=== PATIENT | male | born 1960 | race African-American/Black ===

== ENCOUNTER → 2019-08-10 | Outpatient (CLI) | payer OTHER ==
[2016-06-16 08:37] VITALS: BP 143/89
[~2019-08-10] MED LIST: LISI-338 PO; LISI10TA2 PO; METF500T16 PO; REGADENOSON 0.4 MG/5 ML DISP.SYRIN. IV ONE; TAMS0.4C2 PO
--- NOTE | 2019-08-13 11:58 | RAD ---
MR#: [id number] Date of Study: 08/10/2019 Ordering Physician: CASSY JORGENSEN, Referring Physician: MICHI THOMPSON Tech: PONCE Jay ARRT (Kenzie) (N) APPROVED REPORT Test Type: Pharmacological Stress Nurse/Tech: Veronica Cantu RN Test Indications: HTN Cardiac History: HTN, DM Medications: See Electronic Medical Record Medical History: See Electronic Medical Record Resting ECG: SR Resting Heart Rate: 80 bpm Resting Blood Pressure: 163/85mmHg Pretest Chest Pain: None Nurse/Tech Notes Lungs CTA, S1S2 Consent: The procedure was explained to the patient in lay terms. Informed consent was witnessed. Chris eout was entered into [employer]. History and Stress Test performed by JOEL Gama Pharm. Details Pharmacologic stress testing was performed using 0.4mg per 5ml of regadenoson given intravenously ove r 7-10 seconds. Stress Symptoms No chest pain or symptoms. POST EXERCISE Reason for Termination: Infusion complete Max HR: 102 bpm Max Blood Pressure: 164/82mmHg Blood Pressure response to exercise: Normal blood pressure response during stress. Heart Rate response to exercise: normal response Chest Pain: No. Arrhythmia: No. ST Change: No. INTERPRETATION Stress EKG Conclusion: No evidence of stress induced EKG changes. Imaging Protocol IMAGE PROTOCOL: Rest Tc-99m/stress Tc-99m 1 day Rest: Stress: Viability: Radiopharm.Tc99m KjhghpbxhOk60z Sestamibi Njow26kCh 33mCi Img Date 08/10/2019 08/10/2019 Inj-Img Fnjd50oys. 60min. Rest Admin Site:IV - Right AntecubitalAdministrator:PONCE Jay ARRT (R)(N) Stress Admin Site: IV - Right AntecubitalAdministrator: JOEL Gama STRESS DATA End Diast. Vol.119.0mlAv. Heart Rate86.0bpm End Syst. Vol.57.0mlCO Index BSA0.0L/min Myocardial Laas840.0gEject. Pkdaldgt36.0% Stress Rates Pk. Fill Rate2.42EDV/secLVtime Pk. Fill 203.04msec Pk. Empty Rate2.68ESV/secLVtime Pk. Eject90.72msec 1/3 Pk. Fill1.28EDV/sec Stress Scores Regional WT0.00Summed WT6.00 Regional WM2.00Summed WM21.00 LV Perfusion There is a small to moderate sized FIXED septal defect suggestive of prior infarct w/o active ischemi a. There is also a a small to moderate sized basal to mid inferior wall defect suggestive of prior infar ct w/o ischemia Wall Motion Mild global hypokinesis, EF 50%. LV Perf. Quant 17 Seg. SSS5.00 17 Seg. SRS12.00 17 Seg. SDS0.00 Stress Defect Extent (% LAD)20.00Rest Defect Extent (% LAD)33.80Rev. Defect Extent (% LAD)0.00 Stress Defect Extent (% LCX) 0.00Rest Defect Extent (% LCX)15.00Rev. Defect Extent (% LCX)0.00 Stress Defect Extent (% RCA)0.00Rest Defect Extent (% RCA)6.70Rev. Defect Extent (% RCA)0.00 Stress Defect Extent (% LILLY)7.60Rest Defect Extent (% LILLY)18.00Rev. Defect Extent (% LILLY)0.00 Other Information Quality:Fair Risk Assessment: Moderate Risk Conclusion 1. No evidence of stress induced EKG changes. 2. Fixed defects as noted above w/o active ischemia. 3. Mild LV dysfunction. EF 50% 4. Moderate risk study. Signed by : Dwight Thakkar, Electronically Approved : 08/10/2019 12:54:40
== END | disposition home or self-care (01) ==
LOC: NM 07:57
PROVIDERS: ATTEND Family Medicine
DX: R14.2 Eructation (principal); I10 Essential (primary) hypertension; E11.9 Type 2 diabetes mellitus without complications
CPT/HCPCS: 78452; 93017; A9500; J2785

== ENCOUNTER → 2020-02-27 | Outpatient (CLI) | payer OTHER ==
[2016-06-16 08:37] VITALS: BP 143/89
[~2020-02-27] MED LIST changes: -REGADENOSON 0.4 MG/5 ML DISP.SYRIN. IV ONE
--- NOTE | 2020-02-27 15:58 | CARD ---
MR#: [id number] Date of Study: 02/27/2020 Ordering Physician: MIL ESTRADA, Referring Physician: MIL ESTRADA, Tech: Liudmila Oakley APPROVED REPORT EXAM: Two-dimensional and M-mode echocardiogram with Doppler and color Doppler. Other Information Quality : AverageHR: 84bpm INDICATION Cardiac Disease: CAD RISK FACTORS Hypertension Hyperlipidemia 2D DIMENSIONS Left Atrium(2D)2.4 (1.6-4.0cm)IVSd1.0 (0.7-1.1cm) Aortic Root(2D)3.2 (2.0-3.7cm)LVDd4.4 (3.9-5.9cm) LVOT Diameter2.0 (1.8-2.4cm)PWd1.0 (0.7-1.1cm) LVDs3.5 (2.5-4.0cm)FS (%) 22.1 % SV40.0 ml Aortic Valve AoV Peak Alexander.112.8cm/sAoV VTI16.5cm AO Peak GR.5.1mmHgLVOT Peak Alexander.93.6cm/s LVOT VTI 13.90cmAO Mean GR.3mmHg MARLEY (VMAX)1.51pu2HYK (VTI)2.54cm2 Mitral Valve MV E Savljdmd94.9cm/sMV DECEL XCNV388ra MV A Wnwazfab91.3cm/sMV E Mean Gr.1mmHg MV DIV44npR/A Ratio0.7 MVA (PHT)2.50cm2 TDI E/Lateral E'3.6E/Medial E'8.3 Pulmonary Valve PV Peak Kflpuuhx74.1cm/sPV Peak Grad.4mmHg Tricuspid Valve TR P. Mykzmsqe616wi/sRAP IRHJGKIY6vnYq TR Peak Gr.41kuSvPXSC38zsNf Pulmonary Vein S1 Xsxsbdbz98.1cm/sD2 Jkzpvrec50.6cm/s PVa sczskyci172xuom LEFT VENTRICLE The left ventricle is normal size. There is normal left ventricular wall thickness. The left ventricu lar systolic function is mildly decreased. The Ejection Fraction is estimated at 45%. There is mild hypokinesis in the mid septal wall. Transmitral Doppler flow pattern is Grade I-abnormal relaxation p attern. RIGHT VENTRICLE The right ventricle is normal size. There is normal right ventricular wall thickness. The right ventr icular systolic function is normal. ATRIA The left atrium size is normal. The right atrium size is normal. The interatrial septum is intact wit h no evidence for an atrial septal defect or patent foramen ovale as noted on 2-D or Doppler imaging. AORTIC VALVE The aortic valve is normal in structure and function. Doppler and Color Flow revealed no significant aortic regurgitation. There is no significant aortic valvular stenosis. Calculated aortic valve area is 2.51 cm2 with maximum pressure gradient of 6 mmHg and mean pressure gradient of 3 mmHg. MITRAL VALVE The mitral valve is normal in structure and function. There is no evidence of mitral valve prolapse. There is no mitral valve stenosis. Doppler and Color-flow revealed trace mitral regurgitation. TRICUSPID VALVE The tricuspid valve is normal in structure and function. Doppler and Color Flow revealed trace tricus pid regurgitation with an estimated PAP of 23 mmHg. There is no tricuspid valve stenosis. PULMONIC VALVE The pulmonic valve is not well visualized. Doppler and Color Flow revealed no pulmonic valvular regur gitation. GREAT VESSELS The aortic root is normal in size. The IVC is normal in size and collapses >50% with inspiration. PERICARDIAL EFFUSION There is no evidence of significant pericardial effusion. Critical Notification Critical Value: No <Conclusion> The left ventricle is normal size. The left ventricular systolic function is mildly decreased. The Ejection Fraction is estimated at 45%. There is mild hypokinesis in the mid septal wall. Doppler and Color Flow revealed no significant aortic regurgitation. There is no significant aortic valvular stenosis. Doppler and Color-flow revealed trace mitral regurgitation. Doppler and Color Flow revealed trace tricuspid regurgitation with an estimated PAP of 23 mmHg. Signed by : Geovany Austin MD Electronically Approved : 02/27/2020 15:57:51
== END | disposition home or self-care (01) ==
LOC: ECHO 10:19
PROVIDERS: ATTEND Internal Medicine Cardiovascular Disease
DX: I25.10 Atherosclerotic heart disease of native coronary artery without angina pectoris (principal)
CPT/HCPCS: 93306

== ENCOUNTER 2021-09-28 08:17 | Inpatient (IN) | payer OTHER ==
[2021-09-28] VITALS (15 sets, daily range): BP systolic 100–173; BP diastolic 60–93
[~2021-09-28] VITALS: Ht 167.6 cm; Wt 82.1 kg
[~2021-09-28 08:17] MED LIST changes: -LISI-338 PO; +LISI10TA16 PO; -LISI10TA2 PO; +LISI5TAB15 PO
[2021-09-28] MEDS ORDERED: AMLO-186 PO (08:49)
[2021-09-28] MEDS ORDERED: ASPI-630 PO (08:49)
[2021-09-28] MEDS ORDERED: ATOR40TA59 PO (08:49)
[2021-09-28] MEDS ORDERED: CARV3.1210 PO (08:49)
[2021-09-28] MEDS ORDERED: IBUP-1027 PO (08:49)
[2021-09-28] MEDS ORDERED: GLUC-11 PO (08:49)
[2021-09-28] MEDS ORDERED: HYDR50TA9 PO (08:49)
[2021-09-28 09:09] LABS: CALCIUM 8.6 mg/dL (8.5-10.1); CREATININE 1.3 mg/dL (0.7-1.3); GFR 67.9; HEMATOCRIT 38.7 % (39.0-53.0); HEMOGLOBIN 13.2 g/dL (13.0-17.5); POTASSIUM 4.5 mmol/L (3.5-5.1); RED BLOOD COUNT 4.25 x10^6/uL (4.30-5.70); RED CELL DISTRIBUTION WIDTH 13.4 % (11.5-14.5); WHITE BLOOD COUNT 3.7 x10^3/uL (4.0-11.0)
[2021-09-28 09:28] LABS: PROTHROMBIN TIME PATIENT 14.4 SEC (11.7-14.0)
[2021-09-28] MEDS ORDERED: VERAPAMIL 5 MG/2 ML VIAL. ONE (10:10)
[2021-09-28] MEDS ORDERED: fentaNYL PF VIAL 100 MCG/2 ML VIAL ONE (10:10)
[2021-09-28] MEDS ORDERED: MIDAZOLAM HCL/PF 2 MG/2 ML VIAL. ONE (10:10)
[2021-09-28] MEDS ORDERED: HEPARIN for IV BOLUS 10,000 UNIT/10 ML VIAL. ONE (10:10)
[2021-09-28] MEDS ORDERED: NITROGLYCERIN 200 MCG/2 ML SYRINGE FOR CATH/VASC LAB. ONE (10:11)
[2021-09-28] MEDS ORDERED: fentaNYL PF VIAL 100 MCG/2 ML VIAL IV ONE (10:45)
[2021-09-28] MEDS ORDERED: VERAPAMIL 5 MG/2 ML VIAL. IART ONE (10:45)
[2021-09-28] MEDS ORDERED: CONTRAST GIVEN. MC PRN (10:45)
[2021-09-28] MEDS ORDERED: LIDOCAINE 1% PF 2 ML VIAL. INJ ONE (10:45)
[2021-09-28] MEDS ORDERED: NITROGLYCERIN 200 MCG/2 ML SYRINGE FOR CATH/VASC LAB. IART ONE (10:45)
[2021-09-28] MEDS ORDERED: IODIXANOL 320 MG/ML 100 ML VIAL. IART ONE (10:45)
[2021-09-28] MEDS ORDERED: HEPARIN for IV BOLUS 10,000 UNIT/10 ML VIAL. IART ONE (10:45)
[2021-09-28] MEDS ORDERED: MIDAZOLAM HCL/PF 2 MG/2 ML VIAL. IV ONE (10:45)
[2021-09-28] MEDS ORDERED: HEPARIN for IV BOLUS 10,000 UNIT/10 ML VIAL. IV ONE (10:45)
[2021-09-28] MEDS ORDERED: CLOPIDOGREL BISULFATE 75 MG TABLET ONE (11:12)
[2021-09-28] MEDS ORDERED: CLOPIDOGREL BISULFATE 75 MG TABLET PO ONE (11:30)
[2021-09-28] MEDS ORDERED: IV NORMAL SALINE 1000ML BAG 1,000 ML IV ONE (11:30)
--- NOTE | 2021-09-28 12:50 | HP ---
DATE OF SERVICE: 09/28/2021 ADMIT DATE: 09/28/2021 REASON FOR ADMISSION TO THE HOSPITAL: History of PCI and failed angioplasty and nonsustained VT. HISTORY OF PRESENT ILLNESS: The patient is a pleasant 61-year-old man who presented to the hospital in the setting of significant exertional dyspnea and nonsustained VT and due to his symptoms, he was brought straight to the catheterization laboratory on elective basis for further evaluation of ischemic pathology. He was found to have a critical 95% bifurcation stenosis involving his RCA and attempts to cross the lesion were unsuccessful and therefore, he has been admitted to initiate antiplatelet therapy and antiarrhythmic drug therapy prior to discharge for consideration of referral to a tertiary medical center for complex PCI. PAST MEDICAL HISTORY: 1. Coronary artery disease. 2. Hypertension. 3. Dyslipidemia. 4. Diastolic heart failure. 5. Obesity. ALLERGIES: No known drug allergies. CURRENT CARDIOVASCULAR MEDICATIONS: 1. Lisinopril 20 mg daily. 2. Carvedilol 3.125 mg p.o. b.i.d. 3. Hydrochlorothiazide 50 mg daily. 4. Atorvastatin 40 mg daily. REVIEW OF SYSTEMS: Negative for 10 out of 14 systems reviewed, unless otherwise mentioned above in HPI. PHYSICAL EXAMINATION: VITAL SIGNS: Afebrile. HEAD AND NECK: Unremarkable. CARDIAC: Regular rate and rhythm without any murmurs, rubs or gallops. LUNGS: Clear to auscultation bilaterally. ABDOMEN: Soft, nontender, nondistended. EXTREMITIES: No clubbing, cyanosis or edema. NEUROLOGIC: No focal deficits. MUSCULOSKELETAL: No trauma. DIAGNOSTIC STUDIES: Hemoglobin, creatinine and platelets are within normal limits. IMPRESSION: 1. Nonsustained ventricular tachycardia. 2. Ischemic cardiomyopathy. 3. Three-vessel coronary artery disease with critical lesion involving the RCA bifurcation. RECOMMENDATIONS: 1. Initiate Plavix and continue aspirin therapy as well as statin. 2. We will initiate metoprolol therapy and amiodarone therapy for monitoring of his nonsustained VT. 3. Plan for referral to a tertiary medical center in the near future for complex PCI. DONNA SARGENT: Fallon TID: [id number] OFELIA
--- NOTE | 2021-09-28 16:44 | CARD ---
MR#: [id number] Date of Study: 09/28/2021 Ordering Physician: MIL ESTRADA, Referring Physician: MIL ESTRADA, Tech: Ashley Tapia [facility] APPROVED REPORT EXAM: Two-dimensional and M-mode echocardiogram with Doppler and color Doppler. Other Information Quality : GoodHR: 65bpm Rhythm : NSR INDICATION Cardiac Disease: CAD RISK FACTORS Hypertension Hyperlipidemia Diabetes 2D DIMENSIONS RVDd3.0 (2.9-3.5cm)Left Atrium(2D)3.2 (1.6-4.0cm) IVSd1.4 (0.7-1.1cm)Aortic Root(2D)3.1 (2.0-3.7cm) LVDd4.2 (3.9-5.9cm)LVOT Diameter2.2 (1.8-2.4cm) PWd1.4 (0.7-1.1cm)LVDs3.3 (2.5-4.0cm) FS (%) 20.7 %SV33.2 ml Aortic Valve AoV Peak Alexander.103.9cm/sAoV VTI20.4cm AO Peak GR.4.3mmHgLVOT Peak Alexander.87.6cm/s AO Mean GR.2mmHgAVA (VMAX)3.31cm2 Mitral Valve MV E Eerzaqlw03.2cm/sMV DECEL SIUY014na MV A Sfuwjfgz43.9cm/sE/A Ratio0.7 Pulmonary Valve PV Peak Kqbloclg48.2cm/s Tricuspid Valve TR P. Topnpabj177ib/sTR Peak Gr.27mmHg LEFT VENTRICLE The left ventricle is normal size. There is mild concentric left ventricular hypertrophy. The ejectio n fraction is mildly impaired. LV ejection fraction is estimated at 45%. There is mild septal hypokin esis. Transmitral Doppler flow pattern is Grade I-abnormal relaxation pattern. RIGHT VENTRICLE The right ventricle is normal size. There is normal right ventricular wall thickness. The right ventr icular systolic function is normal. ATRIA The left atrium size is normal. The right atrium size is normal. The interatrial septum is intact wit h no evidence for an atrial septal defect or patent foramen ovale as noted on 2-D or Doppler imaging. AORTIC VALVE The aortic valve is normal in structure and function. Doppler and Color Flow revealed trace aortic re gurgitation. There is no significant aortic valvular stenosis. MITRAL VALVE The mitral valve is normal in structure and function. There is no evidence of mitral valve prolapse. There is no mitral valve stenosis. Doppler and Color-flow revealed trace mitral regurgitation. TRICUSPID VALVE The tricuspid valve is normal in structure and function. Doppler and Color Flow revealed trace tricus pid regurgitation. Estimated PAP 30 mmHg. There is no tricuspid valve stenosis. PULMONIC VALVE The pulmonary valve is normal in structure and function. Doppler and Color Flow revealed no pulmonic valvular regurgitation. GREAT VESSELS The aortic root is normal in size. The ascending aorta is normal in size. The IVC is normal in size a nd collapses >50% with inspiration. PERICARDIAL EFFUSION There is no evidence of significant pericardial effusion. Critical Notification Critical Value: No <Conclusion> The left ventricle is normal size. The ejection fraction is mildly impaired. LV ejection fraction is estimated at 45%. There is mild septal hypokinesis. There is mild concentric left ventricular hypertrophy. Doppler and Color Flow revealed trace aortic regurgitation. There is no significant aortic valvular stenosis. Doppler and Color-flow revealed trace mitral regurgitation. Doppler and Color Flow revealed trace tricuspid regurgitation. Estimated PAP 30 mmHg. Signed by : Geovany Austin MD Electronically Approved : 09/28/2021 16:43:43
--- NOTE | 2021-09-28 18:04 | CARD ---
MR#: [id number] Date of Study: 09/28/2021 Ordering Physician: MIL THAKKAR, Referring Physician: MIL THAKKAR, Tech: NATALIYA SUAREZ APPROVED REPORT Technologist: NATALIYA SUAREZ Nurse: Roslyn Campos RN Procedure(s) performed: FL TIME: 21.4 MIN DOSE: 102 GYCM2 CONTRAST: 85 ML SEDATION TIME: 80 MIN Left heart catheterization, coronary angiography Failed PCI of the right coronary artery INDICATION The indication(s) include : palpitations, arrhythmia, dyspnea, Nonsustained VT. [facility] Clinical Frailty Scale [facility] Clinical Frailty Scale: Mildly Frail Heart Failure Heart Failure: Yes If Yes, Newly Diagnosed: Yes If Yes, HF Type: Diastolic If Yes, NYHA Class: Class II CASE TECHNIQUE IV conscious sedation was used throughout procedure with appropriate monitoring and was performed in the presence of a registered nurse who was an independent trained observer other than the physician p erforming the procedure. During this case, Fluoroscopy and low osmolar contrast were used for imaging . Specimen(s) Removed: N/A Estimated Blood loss: 15 cc's. PROCEDURE NARRATIVE Clinical information: 61-year-old male with past medical history of hypertension and dyslipidemia presented to the office i n the setting of exertional dyspnea and palpitations. A event monitor revealed nonsustained ventricu lar tachycardia and therefore his stress test was canceled and he was taken directly to the catheteri zation laboratory for further evaluation and treatment Procedure details: Under 1% lidocaine local anesthesia a 6 Swiss sheath was placed in the right radial artery. Diagnos tic angiography was then performed with a 6 Swiss TIG catheter, a pigtail catheter and a AR-1 diagno stic catheter. Left ventricular diastolic pressure was obtained with a pigtail catheter and a pullba ck was performed. Findings: Aorta 140/80 LVEDP 16 mmHg No LV to aortic pullback gradient Coronary angiography: Left main is a large-caliber vessel with normal angiographic appearance LAD is a moderate to large caliber vessel with a long mid 40 to 50% stenosis D1 is a small to moderate caliber vessel with a proximal 60% stenosis Lcx is a large caliber nondominant vessel with a mid 50% stenosis OM1 is a moderate caliber vessel with a proximal 20% stenosis RCA is a large caliber tortuous vessel with moderate diffuse disease of up to 50% in the proximal and mid segments and a distal 90% stenosis with an ulcerated plaque prior to the bifurcation of the PDA and PL branches. RPDA is a small to moderate caliber vessel with an ostial 90% stenosis RPL is a small to moderate caliber vessel with mild luminal irregularities of up to 20% Interventional technique: Heparin was used for anticoagulation. Through a 6 Swiss AR-1 guide catheter a Prowater wire with th e help of a Corsair microcatheter was delivered to the distal RPL. Multiple wire shapes were obtaine d and an attempt to perform the hairpin technique and fishhook technique were unsuccessful. Due to l ack of available interventional equipment such as dual-lumen catheters and [employer] wires, further aggress giacomo intervention was deferred in favor of referral to tertiary medical center for consideration of co mplex PCI. At case completion all catheters and sheaths were removed and hemostasis was achieved via a Terumo radial band inflated to 11 mL. The patient received Plavix and was admitted for overnight observation and initiation of amiodarone therapy. No acute complications Conclusion 1. Mild acute on chronic decompensated systolic and diastolic heart failure, LVEDP 18 mmHg 2. Three-vessel coronary artery disease with likely culprit lesion involving the distal RCA bifurcat ion stenosis 3. Unsuccessful PCI of the distal RCA bifurcation due to significant tortuosity and difficult sidebr anch angulation Recommendations Aspirin 81 mg indefinitely Plavix 75 mg daily Initiation of amiodarone for nonsustained ventricular tachycardia LifeVest therapy until revascularization completed Case discussed with [facility] complex PCI service and Dr. Slaughter, patient will be seen in their outpatient center in the next 1 to 2 weeks with plans for PCI about a week or 2 after. Discussed with the patient and and they are in agreement with current plans. Signed by : Mil Thakkar, Electronically Approved : 09/28/2021 18:03:34
[2021-09-28] MEDS ORDERED: AMIODARONE 150 MG in IV DEXTROSE 5% 100ML 100 ML IV ONE (19:00)
[2021-09-28] MEDS: AMIODARONE 450 MG in IV DEXTROSE 5% 250 ML IV PRN (19:10)
[2021-09-28] MEDS: ATORVASTATIN CALCIUM 40 MG TABLET. PO SCH (20:20)
[2021-09-29] VITALS (10 sets, daily range): BP systolic 107–149; BP diastolic 47–81
[2021-09-29] MEDS: AMIODARONE 450 MG in IV DEXTROSE 5% 250 ML IV PRN (02:25)
[2021-09-29] MEDS: LISINOPRIL 20 MG TABLET PO SCH (08:33)
[2021-09-29] MEDS: CLOPIDOGREL BISULFATE 75 MG TABLET PO SCH (08:33)
[2021-09-29] MEDS: METOPROLOL SUCC 24HR ER 25 MG TAB.ER.24H. PO SCH (08:34)
--- NOTE | 2021-09-29 13:49 | DISCH ---
DISCHARGE INSTRUCTIONS Condition on Discharge Condition on Discharge: Stable Activity After Discharge Activity Instructions for Disc: Activity as tolerated Lifting Instructions after Dis: No heavy lifting, No pulling or pushing, Do not lift >10 pounds Driving Instructions after Dis: Do not drive Weight Bearing Status after Di: As tolerated Diet after Discharge Diet after Discharge: Cardiac Contacting the DRJuly after DC Call your doctor for: Concerns you may have ESME MCCARTHY APRN Sep 29, 2021 13:49
--- NOTE | 2021-09-29 14:18 | PDOC3 ---
ESME MCCARTHY LIFTER DRIVER 09/29/21 1418: Discharge Summary Visit Information Date of Admission: Sep 28, 2021 Date of Discharge: Sep 29, 2021 Admitting Diagnosis Comment: 1. Coronary artery disease. 2. Sustained VT 4. Hypertension. 5. Dyslipidemia. 6. Diastolic heart failure. 7. Obesity. Final Diagnosis 1. Coronary artery disease. 2. Ischemic cardiomyopathy 3. Sustained VT 4. Hypertension. 5. Dyslipidemia. 6. Systolic heart failure. 7. Obesity. Brief Hospital Course Allergies Allergies Coded Allergies Type Severity Reaction Last Updated Verified No Known Drug Allergies 06/16/16 No Vital Signs Vital Signs Date Time Temp Pulse Resp B/P (MAP) Pulse Ox O2 Delivery O2 Flow Rate FiO2 09/29/21 11:00 98.2 69 16 131/78 (95) 97 Room Air 98.2 09/28/21 11:44 2.0 Lab Results Laboratory Tests Test 09/28/21 08:40 White Blood Count 3.7 x10^3/uL (4.0-11.0) Red Blood Count 4.25 x10^6/uL (4.30-5.70) Hemoglobin 13.2 g/dL (13.0-17.5) Hematocrit 38.7 % (39.0-53.0) Mean Corpuscular Volume 91 fL (79-100) Mean Corpuscular Hemoglobin 31 pg (25-35) Mean Corpuscular Hemoglobin Concent 34 g/dL (31-37) Red Cell Distribution Width 13.4 % (11.5-14.5) Platelet Count 193 x10^3/uL (140-400) Prothrombin Time 14.4 SEC (11.7-14.0) Prothromb Time International Ratio 1.2 (0.8-1.1) Sodium Level 138 mmol/L (136-145) Potassium Level 4.5 mmol/L (3.5-5.1) Chloride Level 104 mmol/L (98-107) Carbon Dioxide Level 28 mmol/L (21-32) Anion Gap 6 (6-14) Blood Urea Nitrogen 15 mg/dL (8-26) Creatinine 1.3 mg/dL (0.7-1.3) Estimated GFR (Cockcroft-Gault) 67.9 Glucose Level 126 mg/dL (70-99) Calcium Level 8.6 mg/dL (8.5-10.1) Brief Hospital Course Mr. Marie is a 61 old male who presented to the hospital in the setting of significant exertional dyspnea and sustained VT and due to his symptoms, he was brought straight to the catheterization laboratory on elective basis for further evaluation of ischemic pathology. He was found to have a critical 95% bifurcation stenosis involving his RCA and attempts to cross the lesion were unsuccessful and therefore, he was admitted to initiate antiplatelet therapy and antiarrhythmic drug therapy with amiodarone. Patient was monitored overnight without complications or further significant arrhythmias. He will be fit for LifeVest prior to discharge and will be referred to a tertiary medical center for complex PCI. Assessment Assessment Alert and oriented x3 Lungs CTA RRR, S1, S2 No LE edema. Right radial arteriotomy site soft, clean, and dry. No hematoma. Bilateral neurovascular status intact Discharge Information Condition at Discharge: Stable Disposition/Orders: D/C to Home Scheduled Amiodarone Hcl (Amiodarone Hcl) 200 Mg Tablet, 400 MG PO DAILY for arrhythmia for 30 Days, #60 Prescribed by: ESME MCCARTHY APRN on 09/29/21 1426 Amiodarone Hcl (Amiodarone Hcl) 400 Mg Tablet, 1 TAB PO BID for heart rhythm for 7 Days, #14 Ref 0 Prescribed by: ESME MCCARTHY APRN on 09/29/21 142 Amlodipine Besylate (Amlodipine Besylate) 5 Mg Tablet, 5 MG PO DAILY for blood pressure, (Reported) Entered as Reported by: VERONICA ADRIAN on 09/28/21848 Last Taken: Unknown Dose on 09/28/21 Last Action: New Order on 09/28/21848 by VERONICA ADRIAN Aspirin (Aspirin) 81 Mg Tab.chew, 1 TAB PO DAILY for heart, #30 Ref 3 (Reported) Entered as Reported by: VERONICA ADRIAN on 09/28/21848 Last Taken: Unknown Dose on 09/28/21 Last Action: New Order on 09/28/21848 by VERONICA ADRIAN Atorvastatin Calcium (Atorvastatin Calcium) 40 Mg Tablet, 1 TAB PO DAILY for high cholesterol, #30 Ref 5 (Reported) Entered as Reported by: VERONICA ADRIAN on 09/28/21848 Last Taken: Unknown Dose on 09/28/21 Last Action: New Order on 09/28/21848 by VERONICA ADRIAN Clopidogrel Bisulfate (Clopidogrel) 75 Mg Tablet, 75 MG PO DAILYWBKFT for CAD for 30 Days, #30 Ref 3 Prescribed by: ESME MCCARTHY APRN on 09/29/21 1426 Glucosamine Hcl/Chondr [place] A Na (Cidaflex Tablet) 1 Each Tablet, 1 EACH PO DAILY for bone health, (Reported) Entered as Reported by: VERONICA ADRIAN on 09/28/21848 Last Taken: Unknown Dose on 09/27/21 Last Action: New Order on 09/28/21848 by VERONICA ADRIAN Hydrochlorothiazide (Hydrochlorothiazide Tablet) 50 Mg Tablet, 50 MG PO DAILY for DIURETIC, Ref 0 (Reported) Entered as Reported by: VERONICA ADRIAN on 09/28/21848 Last Taken: Unknown Dose on 09/27/21 Last Action: New Order on 09/28/21848 by VERONICA ADRIAN Lisinopril (Lisinopril) 10 Mg Tablet, 10 MG PO DAILY for FOR HYPERTENSION, #30 Ref 0 (Reported) Entered as Reported by: RASHID AYERS on 06/16/16 0740 Last Taken: 20mg on 09/28/21 Last Action: Last Taken Edited on 09/28/21848 by VERONICA ADRIAN Metformin Hcl (Metformin Hcl) 500 Mg Tablet, 1 TAB PO BID, #60 Ref 3 (Reported) Entered as Reported by: RASHID AYERS on 06/16/16 0739 Last Taken: Unknown Dose on 09/27/21 Last Action: Last Taken Edited on 09/28/21848 by VERONICA ADRIAN Metoprolol Succinate (Metoprolol Succinate ( Xl )) 25 Mg Tab.er.24h, 25 MG PO DAILY for heart for 30 Days, #30 Ref 3 Prescribed by: ESME MCCARTHY APRN on 09/29/21 1426 Tamsulosin Hcl (Tamsulosin Hcl) 0.4 Mg Cap.er.24h, 1 CAP PO DAILY, #30 Ref 5 (Reported) Entered as Reported by: RASHID AYERS on 06/16/16 0738 Last Taken: Unknown Dose on 09/28/21 Last Action: Last Taken Edited on 09/28/21848 by VERONICA ADRIAN Discontinued Medications Carvedilol (Carvedilol ) 3.125 Mg Tablet, 3.125 MG PO BIDWMEALS for CARDIAC, (Reported) Entered as Reported by: VERONICA ADRIAN on 09/28/21848 Last Taken: Unknown Dose on 09/28/21 Last Action: New Order on 09/28/21848 by VERONICA ADRIAN Ibuprofen (Ibuprofen) 400 Mg Tablet, 400 MG PO PRN Q6HRS PRN for INFLAMMATION, (Reported) Entered as Reported by: VERONICA ADRIAN on 09/28/21848 Last Taken: Unknown Dose on 09/27/21 Last Action: New Order on 09/28/21848 by VERONICA ADRIAN Patient Instructions Patient Instructions GENERAL INSTRUCTIONS: 1. Your dressing should be removed prior to leaving the hospital. 2. It is OK to shower the day after your procedure. 3. If you received stents, be sure to carry your stent information card with you in your wallet/purse at all times. 4. Call the office immediately at [phone] if you notice any fever or if there is redness, worsening tenderness/pain, increased bruising, or drainage from the puncture site. 5. Should you have bleeding from the site, lie down immediately & put pressure on the site. The pressure should be hard enough to stop the bleeding. Have the nearest person call 911. DO NOT try to drive to the ER with active bleeding. 6. If you notice a change in color, coolness to touch, or loss of feeling in the affected extremity, come to the emergency room. Please have someone drive you or call 911 if no one is available. DO NOT drive yourself. 7. If you normally take glucophage (metformin), please do not take this medicine for 48 hours following your procedure. 8. DO NOT STOP TAKING YOUR PLAVIX OR ASPIRIN UNLESS IT IS CLEARED BY A ALL ROUND BUTCHER OF YOUR HAND PACKER/PACKAGER AT OUR OFFICE. 9. QUIT SMOKING: the [place] [employer], [employer], & [employer] have cessation resources available on their websites 10. Please have someone available to drive you home from the hospital as you may be limited by sedation medications given during the procedure. Femoral (Groin) access: 1. Do no lifting, pushing, pulling, bending, stooping, or recurrent stair cli mbing for 3 days following your procedure. 2. Once past the first 3 days, do not do any HEAVY exertion or lifting for one week following the procedure. No gym workouts, running, lifting greater than a gallon of milk, etc 3. Do not submerge in bath or pool for one week. OK to drive 3 days following your procedure, but if going long distance, do not go alone & take hourly breaks to get out of car and walk around. Radial Artery (Wrist) access: 1. No pushing, pulling, lifting, typing, or anything that requires repetitive use/movement of the affected wrist for 3 days following your procedure. 2. OK to drive the day following your procedure. (This is because of effects of sedating medications.) Call the office at [phone] for any questions or concerns. Justicifation of Admission Dx: Justifications for Admission: Justification of Admission Dx: Yes CHF: Cardiac Arrhythmias Comments: MIL EDWARDS MD 09/30/21810: Discharge Summary Assessment Assessment Late entry for 09/29/2021 Patient seen and examined. Agree with above nurse practitioner note. I had extensive discussion with the patient and his . The patient does have known obstructive coronary disease. He does not have any active unstable anginal symptoms. We will plan for continued medical therapy. LifeVest will be placed. I have discussed the case with [facility] for complex PCI of the distal right coronary artery. He will follow-up with their office in the next 1 to 2 weeks with plans for PCI soon thereafter. Discharge Information Scheduled Amiodarone Hcl (Amiodarone Hcl) 200 Mg Tablet, 400 MG PO DAILY for arrhythmia for 30 Days, #60 Prescribed by: ESME MCCARTHY APRN on 09/29/21 1426 Amiodarone Hcl (Amiodarone Hcl) 400 Mg Tablet, 1 TAB PO BID for heart rhythm for 7 Days, #14 Ref 0 Prescribed by: ESME MCCARTHY APRN on 09/29/21 1426 Amlodipine Besylate (Amlodipine Besylate) 5 Mg Tablet, 5 MG PO DAILY for blood pressure, (Reported) Entered as Reported by: VERONICA ADRIAN on 09/28/21848 Last Taken: Unknown Dose on 09/28/21 Last Action: New Order on 09/28/21 08 by VERONICA ADRIAN Aspirin (Aspirin) 81 Mg Tab.chew, 1 TAB PO DAILY for heart, #30 Ref 3 (Reported) Entered as Reported by: VERONICA ADRIAN on 09/28/21848 Last Taken: Unknown Dose on 09/28/21 Last Action: New Order on 09/28/21848 by VERONICA ADRIAN Atorvastatin Calcium (Atorvastatin Calcium) 40 Mg Tablet, 1 TAB PO DAILY for high cholesterol, #30 Ref 5 (Reported) Entered as Reported by: VERONICA ADRIAN on 09/28/21848 Last Taken: Unknown Dose on 09/28/21 Last Action: New Order on 09/28/21848 by VERONICA ADRIAN Clopidogrel Bisulfate (Clopidogrel) 75 Mg Tablet, 75 MG PO DAILYWBKFT for CAD for 30 Days, #30 Ref 3 Prescribed by: ESME MCCARTHY APRN on 09/29/21 1426 Glucosamine Hcl/Chondr [place] A Na (Cidaflex Tablet) 1 Each Tablet, 1 EACH PO DAILY for bone health, (Reported) Entered as Reported by: VERONICA ADRIAN on 09/28/21848 Last Taken: Unknown Dose on 09/27/21 Last Action: New Order on 09/28/21848 by VERONICA ADRIAN Hydrochlorothiazide (Hydrochlorothiazide Tablet) 50 Mg Tablet, 50 MG PO DAILY for DIURETIC, Ref 0 (Reported) Entered as Reported by: VERONICA ADRIAN on 09/28/21848 Last Taken: Unknown Dose on 09/27/21 Last Action: New Order on 09/28/21848 by VERONICA ADRIAN Lisinopril (Lisinopril) 10 Mg Tablet, 10 MG PO DAILY for FOR HYPERTENSION, #30 Ref 0 (Reported) Entered as Reported by: RASHID AYERS on 06/16/16 0740 Last Taken: 20mg on 09/28/21 Last Action: Last Taken Edited on 09/28/21848 by VREONICA ADRIAN Metformin Hcl (Metformin Hcl) 500 Mg Tablet, 1 TAB PO BID, #60 Ref 3 (Reported) Entered as Reported by: RASHID AYERS on 06/16/16 0739 Last Taken: Unknown Dose on 09/27/21 Last Action: Last Taken Edited on 09/28/21848 by VERONICA ADRIAN Metoprolol Succinate (Metoprolol Succinate ( Xl )) 25 Mg Tab.er.24h, 25 MG PO DAILY for heart for 30 Days, #30 Ref 3 Prescribed by: ESME MCCARTHY APRN on 09/29/21 1426 Tamsulosin Hcl (Tamsulosin Hcl) 0.4 Mg Cap.er.24h, 1 CAP PO DAILY, #30 Ref 5 (Reported) Entered as Reported by: RASHID AYERS on 06/16/16 0738 Last Taken: Unknown Dose on 09/28/21 Last Action: Last Taken Edited on 09/28/21848 by VERONICA ADRIAN Discontinued Medications Carvedilol (Carvedilol ) 3.125 Mg Tablet, 3.125 MG PO BIDWMEALS for CARDIAC, (Reported) Entered as Reported by: VERONICA ADRIAN on 09/28/21848 Last Taken: Unknown Dose on 09/28/21 Last Action: New Order on 09/28/21848 by VERONICA ADRIAN Ibuprofen (Ibuprofen) 400 Mg Tablet, 400 MG PO PRN Q6HRS PRN for INFLAMMATION, (Reported) Entered as Reported by: VERONICA ADRIAN on 09/28/21848 Last Taken: Unknown Dose on 09/27/21 Last Action: New Order on 09/28/21848 by ESME GONSALES APRN Sep 29, 2021 14:18 MIL ESTRADA MD Sep 30, 2021 08:11
[2021-09-29] MEDS ORDERED: METO-239 PO (14:26)
[2021-09-29] MEDS ORDERED: AMIO200T53 PO (14:26)
[2021-09-29] MEDS ORDERED: AMIO400T5 PO (14:26)
[2021-09-29] MEDS ORDERED: CLOP75TA PO (14:26)
--- NOTE | 2021-09-29 15:36 | NUR ---
SS following for discharge planning. SS reviewed pt chart and discussed with pt RN. Pt is from home with spouse and is currently on room air. Cardiology following. Pt had heart cath on 09/28/2021. Pt on Amiodarone drip. Discharge plan is currently to home when medically ready for discharge. SS will continue to follow for discharge planning.
[2021-09-29] MEDS: ASPIRIN ENTERIC COATED 81 MG TABLET.DR. PO SCH (15:41)
[2021-09-29] MEDS: AMIODARONE HCL 200 MG TABLET. PO SCH (15:42)
[2021-09-29] MEDS: ATORVASTATIN CALCIUM 40 MG TABLET. PO SCH (20:07)
[2021-09-30 02:50] VITALS: BP 109/58
[2021-09-30 07:00] VITALS: BP 114/66
[2021-09-30] MEDS: ASPIRIN ENTERIC COATED 81 MG TABLET.DR. PO SCH (08:39)
[2021-09-30] MEDS: CLOPIDOGREL BISULFATE 75 MG TABLET PO SCH (08:39)
[2021-09-30] MEDS: AMIODARONE HCL 200 MG TABLET. PO SCH (08:40)
[2021-09-30] MEDS: LISINOPRIL 20 MG TABLET PO SCH (08:40)
[2021-09-30] MEDS: METOPROLOL SUCC 24HR ER 25 MG TAB.ER.24H. PO SCH (08:41)
[2021-09-30 10:32] VITALS: BP 120/78
--- NOTE | 2021-09-30 14:22 | PDOC ---
ESME MCCARTHY APRN 09/30/21 1422: CARDIO Progress Notes Date and Time Date of Service 09/30/21 Time of Evaluation 1145 Subjective Subjective: No Chest Pain, No shortness of breath, No Palpitations, No Dizziness Vitals Vitals Vital Signs Date Time Temp Pulse Resp B/P (MAP) Pulse Ox O2 Delivery O2 Flow Rate FiO2 09/30/21 10:32 97.7 67 18 120/78 (92) 98 Room Air 97.7 Weight Weight [ ] Input and Output Intake and Output Intake and Output 09/30/21 07:00 Intake Total 100 ml Balance 100 ml Intake Oral 100 ml # Voids 3 Physical Exam HEENT: Neck Supple W Full Motion Chest: Symmetric LUNGS: Clear to Auscultation Heart: RRR Extremities: No Edema Neurology: alert, oriented, follow commands Assessment Assessment 1. Coronary artery disease. 2. Ischemic cardiomyopathy 3. Sustained VT 4. Hypertension. 5. Dyslipidemia. 6. Systolic heart failure. 7. Obesity. Recommendations Discharge held overnight to allow for LifeVest placement Secondary prevention Amiodarone for rhythm maintenance Outpatient referral for complex PCI. Follow up in our office with Dr. Thakkar as scheduled Please see discharge summary for further Justicifation of Admission Dx: Justifications for Admission: Justification of Admission Dx: Yes CHF: Cardiac Arrhythmias MIL THAKKAR MD 09/30/21 4958: CARDIO Progress Notes Plan Plan Patient seen and examined. Agree with above nurse practitioner note. ESME MCCARTHY APRN Sep 30, 2021 14:22 MIL THAKKAR MD Sep 30, 2021 21:58
== END 2021-09-30 12:39 | disposition home or self-care (01) | DRG 286 ==
LOC: CCL 08:17 → 6 SOUTH 11:38
PROVIDERS: ADMIT Internal Medicine Cardiovascular Disease; ATTEND Internal Medicine Cardiovascular Disease
PROC: 4A023N7 Measurement of Cardiac Sampling and Pressure, Left Heart, Percutaneous Approach (ICD-10-PCS; principal; 2021-09-28)
PROC: B211YZZ Fluoroscopy of Multiple Coronary Arteries using Other Contrast (ICD-10-PCS; 2021-09-28)
DX: I25.10 Atherosclerotic heart disease of native coronary artery without angina pectoris (principal); I50.43 Acute on chronic combined systolic (congestive) and diastolic (congestive) heart failure; I47.2 Ventricular tachycardia; I11.0 Hypertensive heart disease with heart failure; E66.9 Obesity, unspecified; E78.5 Hyperlipidemia, unspecified; I25.5 Ischemic cardiomyopathy; Z79.82 Long term (current) use of aspirin; Z79.84 Long term (current) use of oral hypoglycemic drugs; Z79.899 Other long term (current) drug therapy; Z68.29 Body mass index [BMI] 29.0-29.9, adult
CPT/HCPCS: 36415; 80048; 85027; 85610; 93306; 93458; 99152; 99153; C1894; J0282; J1644; J2250; J3010; J3490; J7030; J7060; Q9967; C8929; G0378